=== PATIENT | male | born 1975 | race Caucasian/White ===

== ENCOUNTER 2017-12-22 12:26 | Emergency (ER) | payer OTHER ==
[2017-12-22 12:49] LABS: #Basophils 0.1 thou/uL (0.0-0.2); #Eosinphils 0.1 thou/uL (0.0-0.7); #Lymphocytes 1.7 thou/uL (1.20-3.40); #Monocytes 0.7 thou/uL (0.11-0.59); #Neutrophils 8.5 thou/uL (1.40-6.50); %Basophils 0.5 % (0.0-1.0); %Eosinophils 0.6 % (0.0-10.0); %Lymphocytes 15.6 % (21.0-51.0); %Monocytes 6.3 % (0.0-10.0); Hemoglobin 17.1 g/dL (14.0-18.0); Mean Corpuscular HGB CONC 34.5 g/dL (32.0-36.0); Mean Corpuscular Hemoglobin 32.5 pg (27.0-31.0); Mean Corpuscular Volume 94.1 fl (80.0-94.0); Mean Platelet Volume 7.1 fL (7.4-10.4); Platelet Count 292 thou/uL (130-400); RBC Distribution Width 12.5 % (11.5-14.5); Red Blood Cell (RBC) Count 5.27 mill/uL (4.70-6.10); White Blood Cell (WBC) Count 11.1 thou/uL (4.8-10.8)
[2017-12-22] MEDS ORDERED: Ondansetron ODT 4 MG TAB ONE (12:53)
[2017-12-22 13:17] LABS: ALT (SGPT) 42 U/L (8-55); AST (SGOT) 22 U/L (5-34); Albumin 4.7 g/dL (3.5-5.0); Alkaline Phosphatase 89 U/L (40-150); Anion Gap 13 mmol/L (10-20); BUN (Urea Nitrogen) 13 mg/dL (8.9-20.6); Bilirubin, Total 0.6 mg/dL (0.2-1.2); Calc. Creatinine Clearance 0 mL/min (70-130); Calcium 9.5 mg/dL (7.8-10.44); Carbon Dioxide 25 mmol/L (22-29); Chloride 103 mmol/L (98-107); Estimated GFR-MDRD 78; Globulin 2.6 g/dL (2.4-3.5); Glucose 140 mg/dL (70-105); Protein, Total 7.3 g/dL (6.0-8.3); Sodium 137 mmol/L (136-145)
[2017-12-22 13:58] LABS: Bilirubin Negative (Negative); Blood, Urine Negative (Negative); Clarity CLEAR (Clear); Glucose, Urine (Dipstick) 500 mg/dL (Negative); Leukocyte Negative (Negative); Nitrite Negative (Negative); Protein, Urine (Dipstick) Negative (Neg-Trace); Specific Gravity, Urine 1.031 (1.002-1.036); Urobilinogen 0.2 mg/dL (0.2-1.0); pH, Urine 6.5 (5.0-9.0)
--- NOTE | 2018-01-17 23:25 | EKG ---
Test Reason : Blood Pressure : / mmHG Vent. Rate : 086 BPM Atrial Rate : 086 BPM P-R Int : 160 ms QRS Dur : 086 ms QT Int : 378 ms P-R-T Axes : 044 041 016 degrees QTc Int : 452 ms Sinus rhythm with Premature atrial complexes with Abberant conduction Possible Left atrial enlargement Borderline ECG Confirmed by CARLITO CHEN, ARON Agudelo ([id number]), photo editor DEMETRICE MONTERROSO ([id number]) on 01/17/2018 11:24:58 PM Referred By: Confirmed By:ARON ESTEBAN MD
== END 2017-12-22 13:54 | disposition home or self-care (01) ==
LOC: ERS 12:26
DX: E86.0 Dehydration (principal); F32.9 Major depressive disorder, single episode, unspecified; F17.290 Nicotine dependence, other tobacco product, uncomplicated; Z71.6 Tobacco abuse counseling; Z79.899 Other long term (current) drug therapy; Z79.891 Long term (current) use of opiate analgesic
CPT/HCPCS: 36416; 80053; 81003; 82550; 85025; 93005; 96360; 99406; Q0162

== ENCOUNTER 2020-07-22 16:23 | Inpatient (IN) | payer OTHER ==
[~2020-07-22 16:23] MED LIST: Iopamidol-370 76% 500 ML 1 ML ONE
[2020-07-22] MEDS ORDERED: Morphine 4 MG/ML VIAL ONE ×2 (16:50→19:41)
[2020-07-22] MEDS ORDERED: Dexamethasone 10 MG/ML VIAL ONE (16:51)
[2020-07-22] MEDS ORDERED: Ketorolac Tromethamine 30 MG/ML VIAL ONE (16:51)
[2020-07-22] MEDS ORDERED: Ondansetron PF 4 MG/2 ML Vial ONE (16:51)
[2020-07-22 17:05] LABS: #Lymphocytes 0.5 thou/uL (1.20-3.40); #Monocytes 0.3 thou/uL (0.11-0.59); %Basophils 0.3 % (0.0-1.0); %Eosinophils 0.4 % (0.0-10.0); %Monocytes 6.1 % (0.0-10.0); %Neutrophils 82.2 % (42.0-75.0); Hemoglobin 18.4 g/dL (14.0-18.0); Mean Corpuscular HGB CONC 33.8 g/dL (32.0-36.0); Mean Corpuscular Hemoglobin 32.1 pg (27.0-31.0); Mean Platelet Volume 8.2 fL (7.4-10.4); Platelet Count 135 thou/uL (130-400); RBC Distribution Width 12.2 % (11.5-14.5); Red Blood Cell (RBC) Count 5.71 mill/uL (4.70-6.10); White Blood Cell (WBC) Count 4.9 thou/uL (4.8-10.8)
--- NOTE | 2020-07-22 17:17 | RAD ---
PORTABLE CHEST: 07/22/20 PROVIDED CLINICAL HISTORY: Shortness of breath, COVID positive. FINDINGS: The cardiac silhouette appears enlarged. This may be at least partially on the basis of portable tech nique. Patchy bilateral air space disease is present, predominating in the left mid and lower lung zo ne. There is no pleural fluid or pneumothorax apparent. IMPRESSION: Radiographic findings typical but not specific for COVID pneumonia. POS: CLARA
[2020-07-22 17:37] LABS: ALT (SGPT) 36 U/L (8-55); AST (SGOT) 34 U/L (5-34); Albumin 3.8 g/dL (3.5-5.0); Alkaline Phosphatase 67 U/L (40-110); Anion Gap 18 mmol/L (10-20); BUN (Urea Nitrogen) 13 mg/dL (8.9-20.6); Bilirubin, Total 0.3 mg/dL (0.2-1.2); Calc. Creatinine Clearance 0 mL/min (70-130); Calcium 8.9 mg/dL (7.8-10.44); Carbon Dioxide 22 mmol/L (22-29); Chloride 102 mmol/L (98-107); Globulin 2.9 g/dL (2.4-3.5); Glucose 173 mg/dL (70-105); Potassium 3.8 mmol/L (3.5-5.1); Protein, Total 6.7 g/dL (6.0-8.3); Sodium 138 mmol/L (136-145)
--- NOTE | 2020-07-22 19:00 | CT ---
CT PULMONARY ANGIOGRAM WITH IV CONTRAST AND 3D MIP RECONSTRUCTIONS: 07/22/20 PROVIDED CLINICAL HISTORY: Hypoxia, COVID positive. FINDINGS: There is no evidence for central or segmental pulmonary embolus. Extensive bilateral patchy consolidation. No pleural fluid or pneumothorax apparent. The airway appea rs patent and of normal caliber. There is no evidence for thoracic lymph node enlargement. The visual ized portions of the upper abdomen demonstrate fatty infiltration of the liver. The osseous structure s demonstrate no concerning lytic or blastic lesions. IMPRESSION: 1. No evidence for central or segmental pulmonary embolus. 2. Pulmonary parenchymal findings typical but not specific for COVID pneumonia. POS: CLARA
[2020-07-22] MEDS ORDERED: Azithromycin 500 MG VIAL ONE (19:26)
[2020-07-22] MEDS ORDERED: cefTRIAXone\\ROCEPHIN 2 GM VIAL ONE (19:26)
[2020-07-22] MEDS ORDERED: Calcium Carbonate 500 MG ChewTAB PO PRN (19:48)
[2020-07-22] MEDS ORDERED: Acetaminophen 325 MG TAB PO PRN (19:48)
[2020-07-22] MEDS ORDERED: Acetaminophen 650 MG Suppository PR PRN (19:48)
--- NOTE | 2020-07-22 19:51 | PDOC.HHP ---
Hospitalist HPI - History of Present Illness dyspnea History of Present Illness: Case of an 44y/o male with pmhx of DM who was diagnosed with covid 19 about a week ago comes to hospital with worsening dyspnea. patient states he was on his usual state of health until a week ago when he started with fever, chills cough loss of smell. he states symptoms have been worsening and since yesterday he has been experiencing worsening dyspnea. he reports he has been taken his 02 sats at home and they have been in the mid 80s and he is getting dyspneic with minimal effort for which he decided to comes to hospital for evaluation. Hospitalist ROS - Review of Systems All other systems reviewed; all pertinent +/- noted in HPI/Subj Hospitalist History - Past Surgical History Past Surgical History: reports: Tonsillectomy - Family History Family History: reports: diabetes mellitus - Social History Smoking Status: Never smoker Alcohol: reports: Occassional Drugs: reports: none Living Situation: With Family - Exam General Appearance: awake alert, ill appearing Eye: PERRL, anicteric sclera ENT: normocephalic atraumatic, no oropharyngeal lesions Neck: supple, symmetric, no JVD, no thyromegaly Heart: RRR, no murmur, no gallops, no rubs Respiratory: CTAB, no wheezes, no rales, no ronchi, normal chest expansion, tachypneic Gastrointestinal: soft, non-tender, non-distended, normal bowel sounds Extremities: no cyanosis, no clubbing, no edema Skin: normal turgor, no lesions, no rashes Neurological: cranial nerve grossly intact, normal sensation to touch, no weakness Musculoskeletal: normal tone, normal strength, no muscle wasting Psychiatric: normal affect, normal behavior, A&O x 3 Hospitalist Results - Labs Result Diagrams: 07/22/20 16:52 07/22/20 16:52 Lab results: WBC 4.9 thou/uL (4.8-10.8) 07/22/20 16:52 Hgb 18.4 g/dL (14.0-18.0) H 07/22/20 16:52 Hct 54.3 % (42.0-52.0) H 07/22/20 16:52 MCV 95.0 fL (78.0-98.0) 07/22/20 16:52 Plt Count 135 thou/uL (130-400) 07/22/20 16:52 Neutrophils % 82.2 % (42.0-75.0) H 07/22/20 16:52 Sodium 138 mmol/L (136-145) 07/22/20 16:52 Potassium 3.8 mmol/L (3.5-5.1) 07/22/20 16:52 Chloride 102 mmol/L (98-107) 07/22/20 16:52 Carbon Dioxide 22 mmol/L (22-29) 07/22/20 16:52 BUN 13 mg/dL (8.9-20.6) 07/22/20 16:52 Creatinine 1.05 mg/dL (0.7-1.3) 07/22/20 16:52 Glucose 173 mg/dL (70-105) H 07/22/20 16:52 Lactic Acid 2.6 mmol/L (0.5-2.2) H 07/22/20 16:52 Calcium 8.9 mg/dL (7.8-10.44) 07/22/20 16:52 Total Bilirubin 0.3 mg/dL (0.2-1.2) 07/22/20 16:52 AST 34 U/L (5-34) 07/22/20 16:52 ALT 36 U/L (8-55) 07/22/20 16:52 Alkaline Phosphatase 67 U/L (40-110) 07/22/20 16:52 Serum Total Protein 6.7 g/dL (6.0-8.3) 07/22/20 16:52 Albumin 3.8 g/dL (3.5-5.0) 07/22/20 16:52 Hospitalist H&P A/P - Problem (1) Pneumonia due to COVID-19 virus Code(s): U07.1 - COVID-19; J12.89 - OTHER VIRAL PNEUMONIA Status: Acute (2) Acute respiratory failure with hypoxia Code(s): J96.01 - ACUTE RESPIRATORY FAILURE WITH HYPOXIA Status: Acute (3) Diabetes Code(s): E11.9 - TYPE 2 DIABETES MELLITUS WITHOUT COMPLICATIONS Status: Acute (4) Sepsis Code(s): A41.9 - SEPSIS, UNSPECIFIED ORGANISM Status: Acute - Plan Plan: Case of an 44y/o male with the stated pmhx who present with covid 19 pneumonia and respirtory failure covid 19 pneumonia - tested positive 7 days ago - cxr and chest ct consistent with covid 19 - lymphoneia consistent with covid 19 dx - will start decadron 6mg ivd - dvt prophylaxis - isolation protocol sepsis - febrile + tachycardic + elevated LA with a cxr/chest ct consistent with covid 19 - cultures taken, iv fluids given - f/u lactic acid acute respiratory failure - secondary to covid 19 - cta negative for pe - 02 supplementation DM -acc+ss
[2020-07-22] MEDS ORDERED: Dextrose 5% in Water 1,000 ML IV PRN (20:03)
[2020-07-22] MEDS ORDERED: Dextrose 50% Abboject 50 ML SYRINGE SLOW IVP PRN (20:03)
[2020-07-22 21:15] LABS: Lactic Acid 0.9 mmol/L (0.5-2.2)
[2020-07-22] MEDS ORDERED: Ondansetron PF 4 MG/2 ML Vial IVP PRN (23:45)
[2020-07-22] MEDS ORDERED: Ondansetron ODT 4 MG TAB SL PRN (23:45)
[2020-07-23] MEDS: Sodium Chloride 0.9% 1,000 ML IV SCH ×2 (00:20→12:00)
[2020-07-23] MEDS: Guaifenesin DM 100-10/5 ML UDCUP PO PRN ×4 (00:30→21:09)
[2020-07-23] MEDS: HYDROcodone/Acetaminophen 5/325 mg Tablet PO PRN ×3 (00:35→21:12)
[2020-07-23 02:06] VITALS: BMI 41.0
[2020-07-23] MEDS ORDERED: Ketorolac Tromethamine 30 MG/ML VIAL IVP SCH (05:15)
[2020-07-23] MEDS: HumaLOG 300 UNITS/3 ML VIAL SC PRN ×2 (05:40→14:41)
[2020-07-23] MEDS: Dexamethasone 4 mg/ml Vial SLOW IVP SCH (08:59)
[2020-07-23] MEDS ORDERED: Enoxaparin Sodium 40 MG/0.4 ML SYRINGE SC SCH (09:00)
[2020-07-23 10:08] LABS: White Blood Cell (WBC) Count 5.6 thou/uL (4.8-10.8)
[2020-07-23 10:21] LABS: ALT (SGPT) 30 U/L (8-55); AST (SGOT) 28 U/L (5-34); Albumin 3.4 g/dL (3.5-5.0); Alkaline Phosphatase 61 U/L (40-110); Anion Gap 16 mmol/L (10-20); BUN (Urea Nitrogen) 14 mg/dL (8.9-20.6); Bilirubin, Total 0.3 mg/dL (0.2-1.2); Calc. Creatinine Clearance 198 mL/min (70-130); Calcium 8.1 mg/dL (7.8-10.44); Carbon Dioxide 21 mmol/L (22-29); Chloride 106 mmol/L (98-107); Globulin 2.9 g/dL (2.4-3.5); Glucose 137 mg/dL (70-105); Potassium 4.5 mmol/L (3.5-5.1); Protein, Total 6.3 g/dL (6.0-8.3); Sodium 138 mmol/L (136-145)
[2020-07-23 10:27] LABS: Band 2 % (5-11); Hemoglobin 17.1 g/dL (14.0-18.0); Lymphocytes 8 % (21-51); MDiff Complete? YES; Mean Corpuscular HGB CONC 33.2 g/dL (32.0-36.0); Mean Corpuscular Hemoglobin 32.1 pg (27.0-31.0); Mean Corpuscular Volume 96.5 fL (78.0-98.0); Mean Platelet Volume 8.2 fL (7.4-10.4); Monocytes 7 % (0-10); Neutrophil 83 % (42-75); Platelet Count 148 thou/uL (130-400); Platelet Morphology Comment Appears Adequate; RBC Distribution Width 12.3 % (11.5-14.5); Red Blood Cell (RBC) Count 5.33 mill/uL (4.70-6.10)
[2020-07-23] MEDS ORDERED: REMDESIVIR (EUA) 200 MG in Sodium Chloride 0.9% 250 ML 210 ML IV SCH (14:00)
--- NOTE | 2020-07-23 15:23 | PDOC.HOSPP ---
- Subjective Encounter Date: 07/23/20 Encounter Time: 13:00 Subjective: Patient up in bed on 2 L. - Objective Vital Signs & Weight: Vital Signs (12 hours) Temp Pulse Resp BP Pulse Ox 07/23/20 05:30 98.6 F 83 20 145/99 H 98 Weight Weight 254 lb 4.8 oz I&O: 07/22/20 07/23/20 07/24/20 06:59 06:59 06:59 Intake Total 1100 Output Total 400 Balance 700 Result Diagrams: 07/23/20 09:20 07/23/20 09:20 Additional Labs: Accuchecks 07/23/20 05:37 POC Glucose 185 H Hospitalist ROS - Review of Systems Respiratory: reports: shortness of breath Cardiovascular: denies: chest pain, palpitations, orthopnea, paroxysmal noc. dyspnea, edema, light headedness, other Gastrointestinal: denies: nausea, vomiting, abdominal pain, diarrhea, constipation, melena, hematochezia, other Genitourinary: denies: dysuria, frequency, incontinence, hematuria, retention, other - Medication Medications: Active Medications Generic Name Dose Route Start Last Admin Trade Name Freq PRN Reason Stop Dose Admin Hydrocodone Bitart/Acetaminophen 1 tab 07/22/20 19:48 07/23/20 00:35 Hydrocodone/Acetaminophen 5/325 Mg Tablet PO 1 tab Q4H PRN Administration Moderate Pain (4-6) Hydrocodone Bitart/Acetaminophen 2 tab 07/22/20 19:48 07/23/20 12:26 Hydrocodone/Acetaminophen 5/325 Mg Tablet PO 2 tab Q4H PRN Administration Severe Pain (7-10) Dexamethasone 6 mg 07/23/20 09:00 07/23/20 08:59 Dexamethasone 4 Mg/Ml Vial SLOW IVP 6 mg DAILY THAI Administration Guaifenesin/Dextromethorphan 15 ml 07/22/20 19:48 07/23/20 12:27 Guaifenesin Dm 100-10/5 Ml Udcup PO 15 ml Q4H PRN Administration Cough Remdesivir 200 mg/ Sodium 250 mls @ 250 mls/hr 07/23/20 14:00 07/23/20 14:40 Chloride IV 07/23/20 16:00 250 mls NOW THAI Administration Insulin Human Lispro 0 units 07/22/20 20:03 07/23/20 14:41 Humalog 300 Units/3 Ml Vial SC 2 unit .MILD SLIDING SCALE PRN Administration Mild Correctional Scale Sodium Chloride 10 ml 07/22/20 20:00 07/23/20 08:58 Flush - Normal Saline 10 Ml Syringe IVF 10 ml PRN PRN Administration Saline Flush - Exam Neck: negative: supple, symmetric, no JVD, no thyromegaly, no lymphadenopathy, no carotid bruit, JVD Heart: negative: RRR, no murmur, no gallops, no rubs, normal peripheral pulses, irregular, diminshed peripheral pulses, murmur present, II/IV, III/IV Respiratory: rales Gastrointestinal: negative: soft, non-tender, non-distended, normal bowel sounds, no palpable masses, no hepatomegaly, no splenomegaly, no bruit, no guarding, no rigidity, tender to palpation, distended, diminished bowl sounds, voluntary guarding Hosp A/P (1) Acute respiratory failure with hypoxia Code(s): J96.01 - ACUTE RESPIRATORY FAILURE WITH HYPOXIA Status: Acute (2) Diabetes Code(s): E11.9 - TYPE 2 DIABETES MELLITUS WITHOUT COMPLICATIONS Status: Acute (3) Pneumonia due to COVID-19 virus Code(s): U07.1 - COVID-19; J12.89 - OTHER VIRAL PNEUMONIA Status: Acute (4) Sepsis Code(s): A41.9 - SEPSIS, UNSPECIFIED ORGANISM Status: Acute - Plan Patient currently on 2 L nasal cannula. Desats when he coughs. No need for antibiotics currently. We will continue Decadron and will start remdesivir. Infectious disease consulted. We will also do inhaled steroids and as needed albuterol. Cough medications as needed. Accu-Cheks before meals at bedtime. We will continue to monitor patient.
[2020-07-23] MEDS ORDERED: Albuterol Sulfate 2.5 mg/3 ml Neb NEB PRN (15:24)
--- NOTE | 2020-07-23 16:52 | CON ---
DATE OF CONSULTATION: 07/23/2020 REASON FOR CONSULTATION: COVID pneumonia. 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 Because of exacerbation, hypoxemia, particularly on effort, he was admitted. Initial findings; blood pressure 130/86, pulse 103, with a temperature 101.7, O2 saturation 100. He was diaphoretic, alert, in some mild distress. Lung exam showed few crackles mid lung. Heart exam normal. Other findings on admission; white cell count 4.9, hemoglobin 18, platelets 135, 82% neutrophils, D-dimer 1.10, and CRP was 11.02. Right now, he is feeling a bit more comfortable. No headaches. No sore throat. No back pain. No anosmia. No abdominal pain. Voiding without difficulty. No joint symptoms. No neurological symptoms. PAST MEDICAL HISTORY: Otherwise, negative. No past medical or surgical intervention recorded except for right knee arthroscopy, had tonsillectomy, and polyps removed. 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 Drinks when not working, drinks daily. Never smoker. ALLERGIES: TRAMADOL. MEDICATIONS: 1. Tessalon. 2. Decadron. 3. Lovenox. 4. [place]. 5. Mometasone. 6. Remdesivir. FAMILY HISTORY: Noncontributory. PHYSICAL EXAMINATION: VITAL SIGNS: He is afebrile. He is saturating at 100% with nasal cannula at 2 L. GENERAL: Feels pretty comfortable unless he has to walk. SKIN: Normal. Peripheral IV access. No Herrera catheter. No lymphadenopathy. HEENT: Unremarkable. LUNGS: Fairly clear breath sounds. HEART: S1 and S2, regular rate. No S3, S4, or murmurs. ABDOMEN: Soft. Not distended or tender. No ascites. No bladder distention. MUSCULOSKELETAL: No joint inflammatory activity. Moves all extremities equally. NEUROLOGIC: Cognitive function appears to be intact. LABORATORY DATA: Sodium 138, creatinine 0.76. Liver profile normal. Albumin 3.4. CRP was 11. Chest CTA, [id number] ground-glass opacities, particularly on the left side. ASSESSMENT: [id number] COVID pneumonia, is doing well at 2 L. Continue remdesivir, Decadron, and Lovenox. Daily markers monitoring. Job ID: [id number]
[2020-07-23] MEDS: Ketorolac Tromethamine 30 MG/ML VIAL IVP PRN (17:07)
[2020-07-23] MEDS: Benzonatate 100 MG CAP PO PRN (17:08)
[2020-07-23] MEDS ORDERED: Albuterol 200 PUFF (6.7GM INHALER) INH PRN (20:50)
[2020-07-23] MEDS: Enoxaparin Sodium 40 MG/0.4 ML SYRINGE SC SCH (21:09)
[2020-07-23] MEDS: Mometasone 200 MCG/Formoterol 5 MCG 120 PUFF INHALER INH SCH (21:10)
[2020-07-23] MEDS ORDERED: Melatonin 3 MG TAB PO SCH ×2 (22:45)
--- NOTE | 2020-07-23 23:41 | PDOC.EVN ---
Event Note - Event Note Event Note: Nursing called. Patient running fever, NSAIds ineffective, patient adamant about restarting IVFs to help manage fever, says it is only thing that seems to work, he believes he is "dry". Started IVF maintenance rate x 1 bag.
[2020-07-23] MEDS ORDERED: Sodium Chloride 0.9% 1,000 ML IV SCH (23:45)
[2020-07-24] MEDS: Ketorolac Tromethamine 30 MG/ML VIAL IVP PRN ×3 (00:01→17:31)
[2020-07-24] MEDS: Mometasone 200 MCG/Formoterol 5 MCG 120 PUFF INHALER INH SCH ×2 (06:27→18:39)
[2020-07-24] MEDS: Guaifenesin DM 100-10/5 ML UDCUP PO PRN ×2 (06:45→14:55)
[2020-07-24] MEDS: HYDROcodone/Acetaminophen 5/325 mg Tablet PO PRN ×2 (06:45→22:07)
[2020-07-24] MEDS: Dexamethasone 4 mg/ml Vial SLOW IVP SCH (09:08)
[2020-07-24] MEDS: Famotidine 20 MG TAB PO SCH ×2 (09:09→22:02)
[2020-07-24] MEDS ORDERED: Promethazine HCl 12.5 MG in Sodium Chloride 0.9% 50 ML IVPB SCH (10:15)
[2020-07-24] MEDS: Ondansetron PF 4 MG/2 ML Vial IVP PRN (10:36)
[2020-07-24] MEDS: Enoxaparin Sodium 40 MG/0.4 ML SYRINGE SC SCH ×2 (10:37→22:03)
[2020-07-24 11:43] LABS: INR-International Normal Ratio 0.9; Prothrombin Time 12.8 sec (12.0-14.7)
[2020-07-24] MEDS ORDERED: Ibuprofen 600 MG TAB PO PRN (11:54)
[2020-07-24] MEDS: HumaLOG 300 UNITS/3 ML VIAL SC PRN ×2 (11:54→17:36)
[2020-07-24 12:03] LABS: ALT (SGPT) 25 U/L (8-55); AST (SGOT) 34 U/L (5-34); Albumin 3.1 g/dL (3.5-5.0); Alkaline Phosphatase 48 U/L (40-110); Anion Gap 16 mmol/L (10-20); BUN (Urea Nitrogen) 17 mg/dL (8.9-20.6); Bilirubin, Total 0.3 mg/dL (0.2-1.2); Calc. Creatinine Clearance 160 mL/min (70-130); Carbon Dioxide 23 mmol/L (22-29); Chloride 101 mmol/L (98-107); Globulin 2.8 g/dL (2.4-3.5); Glucose 213 mg/dL (70-105); Potassium 4.2 mmol/L (3.5-5.1); Protein, Total 5.9 g/dL (6.0-8.3); Sodium 136 mmol/L (136-145)
--- NOTE | 2020-07-24 14:36 | PDOC.HOSPP ---
- Subjective Encounter Date: 07/24/20 Encounter Time: 11:00 Subjective: Patient up in bed complains of cough. Patient states that he had a bad night. Patient stated that he had a fever and could not sleep. - Objective Vital Signs & Weight: Vital Signs (12 hours) Temp Pulse Resp BP Pulse Ox 07/24/20 10:53 98.5 F 92 18 136/92 H 97 07/24/20 09:36 98 07/24/20 09:35 98.4 F 98 20 123/81 98 07/24/20 04:53 99.8 F H 102 H 20 120/76 93 L Weight Weight 254 lb 4.8 oz I&O: 07/23/20 07/24/20 07/25/20 06:59 06:59 06:59 Intake Total 1100 1780 Output Total 400 1200 Balance 700 580 Result Diagrams: 07/23/20 09:20 07/24/20 11:00 Additional Labs: Accuchecks 07/24/20 07/24/20 07/23/20 11:53 04:18 21:16 POC Glucose 211 H 113 H 144 H 07/23/20 07/23/20 17:18 12:32 POC Glucose 133 H 194 H Hospitalist ROS - Review of Systems Respiratory: reports: cough, shortness of breath Cardiovascular: denies: chest pain, palpitations, orthopnea, paroxysmal noc. dyspnea, edema, light headedness, other Gastrointestinal: reports: abdominal pain Genitourinary: denies: dysuria, frequency, incontinence, hematuria, retention, other - Medication Medications: Active Medications Generic Name Dose Route Start Last Admin Trade Name Freq PRN Reason Stop Dose Admin Acetaminophen 650 mg 07/22/20 19:48 07/23/20 22:51 Acetaminophen 325 Mg Tab PO 650 mg Q4H PRN Administration Headache/Fever/Mild Pain (1-3) Hydrocodone Bitart/Acetaminophen 1 tab 07/22/20 19:48 07/23/20 00:35 Hydrocodone/Acetaminophen 5/325 Mg Tablet PO 1 tab Q4H PRN Administration Moderate Pain (4-6) Hydrocodone Bitart/Acetaminophen 2 tab 07/22/20 19:48 07/24/20 06:45 Hydrocodone/Acetaminophen 5/325 Mg Tablet PO 2 tab Q4H PRN Administration Severe Pain (7-10) Albuterol Sulfate 2 puff 07/23/20 20:50 07/23/20 21:11 Albuterol 200 Puff (6.7gm Inhaler) INH 2 puff [id number] PRN Administration Wheezing Benzonatate 100 mg 07/23/20 12:59 07/23/20 17:08 Benzonatate 100 Mg Cap PO 100 mg TIDPRN PRN Administration Cough Dexamethasone 6 mg 07/23/20 09:00 07/24/20 09:08 Dexamethasone 4 Mg/Ml Vial SLOW IVP 6 mg DAILY THAI Administration Enoxaparin Sodium 40 mg 07/23/20 21:00 07/24/20 10:37 Enoxaparin Sodium 40 Mg/0.4 Ml Syringe SC 40 mg BID THAI Administration Famotidine 20 mg 07/24/20 09:00 07/24/20 09:09 Famotidine 20 Mg Tab PO 20 mg BID THAI Administration Guaifenesin/Dextromethorphan 15 ml 07/22/20 19:48 07/24/20 06:45 Guaifenesin Dm 100-10/5 Ml Udcup PO 15 ml Q4H PRN Administration Cough Insulin Human Lispro 0 units 07/22/20 20:03 07/24/20 11:54 Humalog 300 Units/3 Ml Vial SC 3 unit .MILD SLIDING SCALE PRN Administration Mild Correctional Scale Mometasone Furoate/Formoterol Fumar 2 puff 07/23/20 18:30 07/24/20 06:27 Mometasone 200 Mcg/Formoterol 5 Mcg 120 Puff Inhaler INH 2 puff BID-RT THAI Administration Ondansetron HCl 4 mg 07/24/20 09:57 07/24/20 10:36 Ondansetron Pf 4 Mg/2 Ml Vial IVP 4 mg Q6H PRN Administration Nausea/Vomiting Sodium Chloride 10 ml 07/22/20 20:00 07/23/20 08:58 Flush - Normal Saline 10 Ml Syringe IVF 10 ml PRN PRN Administration Saline Flush - Exam Heart: negative: RRR, no murmur, no gallops, no rubs, normal peripheral pulses, irregular, diminshed peripheral pulses, murmur present, II/IV, III/IV Respiratory: negative: CTAB, no wheezes, no rales, no ronchi, normal chest expansion, no tachypnea, normal percussion, rales, rhonchi, tachypneic, wheezes Gastrointestinal: negative: soft, non-tender, non-distended, normal bowel sounds, no palpable masses, no hepatomegaly, no splenomegaly, no bruit, no guarding, no rigidity, tender to palpation, distended, diminished bowl sounds, voluntary guarding Extremities: negative: no cyanosis, no clubbing, no edema, 1+ LE edema, 2+ LE edema, clubbing Hosp A/P (1) Acute respiratory failure with hypoxia Code(s): J96.01 - ACUTE RESPIRATORY FAILURE WITH HYPOXIA Status: Acute (2) Diabetes Code(s): E11.9 - TYPE 2 DIABETES MELLITUS WITHOUT COMPLICATIONS Status: Acute (3) Pneumonia due to COVID-19 virus Code(s): U07.1 - COVID-19; J12.89 - OTHER VIRAL PNEUMONIA Status: Acute (4) Sepsis Code(s): A41.9 - SEPSIS, UNSPECIFIED ORGANISM Status: Acute - Plan Patient currently on 2 L nasal cannula. Desats when he coughs. No need for antibiotics currently. We will continue Decadron and will start remdesivir. Infectious disease consulted. We will also do inhaled steroids and as needed albuterol. Cough medications as needed. Accu-Cheks before meals at bedtime. We will continue to monitor patient. 07/24 patient is on day 2 of remdesivir he is nauseated we will do as needed Zofran and Phenergan. Not much of an appetite patient has been encouraged to drink Ensure if needed. Encouraged him to get up and sit up in the chair. Patient continues to cough has blood-tinged sputum. CRP mildly improved today. Patient currently is on 2 L nasal cannula. We will add Robitussin with codeine for night so patient can sleep. Continue steroids.
[2020-07-24] MEDS: REMDESIVIR (EUA) 100 MG in Sodium Chloride 0.9% 250 ML 230 ML IV SCH (14:56)
[2020-07-24] MEDS: Melatonin 3 MG TAB PO SCH (22:03)
[2020-07-24] MEDS: guaiFENesin/Codeine Phosphate 200 mg/20 mg 10 ml UD Cup PO PRN (22:06)
[2020-07-25] MEDS: Ketorolac Tromethamine 30 MG/ML VIAL IVP PRN ×3 (02:08→17:28)
[2020-07-25] MEDS: Ondansetron PF 4 MG/2 ML Vial IVP PRN ×2 (02:36→17:29)
[2020-07-25] MEDS: Guaifenesin DM 100-10/5 ML UDCUP PO PRN ×2 (02:37→09:03)
[2020-07-25] MEDS: HYDROcodone/Acetaminophen 5/325 mg Tablet PO PRN ×2 (02:48→21:02)
[2020-07-25] MEDS: Mometasone 200 MCG/Formoterol 5 MCG 120 PUFF INHALER INH SCH ×2 (05:33→17:30)
[2020-07-25 06:54] LABS: ALT (SGPT) 24 U/L (8-55); AST (SGOT) 33 U/L (5-34); Alkaline Phosphatase 44 U/L (40-110); Anion Gap 14 mmol/L (10-20); BUN (Urea Nitrogen) 15 mg/dL (8.9-20.6); Bilirubin, Direct 0.2 mg/dL (0.1-0.3); Bilirubin, Total 0.3 mg/dL (0.2-1.2); CRP (Inflammatory) 11.86 mg/dL (= or < 0.5); Calc. Creatinine Clearance 201 mL/min (70-130); Calcium 8.1 mg/dL (7.8-10.44); Carbon Dioxide 28 mmol/L (22-29); Chloride 102 mmol/L (98-107); Glucose 131 mg/dL (70-105); Protein, Total 5.6 g/dL (6.0-8.3); Sodium 140 mmol/L (136-145)
[2020-07-25] MEDS: Dexamethasone 4 mg/ml Vial SLOW IVP SCH (09:01)
[2020-07-25] MEDS: Famotidine 20 MG TAB PO SCH ×2 (09:09→20:40)
[2020-07-25] MEDS ORDERED: Polyethylene Glycol 3350 17 GM Packet PO SCH (12:00)
[2020-07-25] MEDS: Enoxaparin Sodium 40 MG/0.4 ML SYRINGE SC SCH ×2 (12:49→20:39)
[2020-07-25] MEDS: HumaLOG 300 UNITS/3 ML VIAL SC PRN ×2 (12:49→17:29)
--- NOTE | 2020-07-25 13:25 | PDOC.HOSPP ---
- Subjective Encounter Date: 07/25/20 Encounter Time: 11:15 Subjective: Patient up in bed states that he feels much better today compared to yesterday. - Objective Vital Signs & Weight: Vital Signs (12 hours) Temp Pulse Resp BP Pulse Ox 07/25/20 12:37 98.4 F 95 20 151/99 H 95 07/25/20 08:12 98.6 F 80 28 H 145/95 H 97 Weight Weight 254 lb 4.8 oz I&O: 07/24/20 07/25/20 07/26/20 06:59 06:59 06:59 Intake Total 1780 2000 Output Total 1200 600 Balance 580 1400 Result Diagrams: 07/23/20 09:20 07/25/20 06:12 Additional Labs: Accuchecks 07/25/20 07/24/20 07/24/20 06:02 22:10 17:33 POC Glucose 132 H 150 H 180 H Hospitalist ROS - Review of Systems Respiratory: reports: cough, shortness of breath Cardiovascular: denies: chest pain, palpitations, orthopnea, paroxysmal noc. dyspnea, edema, light headedness, other Gastrointestinal: reports: abdominal pain - Medication Medications: Active Medications Generic Name Dose Route Start Last Admin Trade Name Freq PRN Reason Stop Dose Admin Acetaminophen 650 mg 07/22/20 19:48 07/23/20 22:51 Acetaminophen 325 Mg Tab PO 650 mg Q4H PRN Administration Headache/Fever/Mild Pain (1-3) Hydrocodone Bitart/Acetaminophen 1 tab 07/22/20 19:48 07/25/20 02:48 Hydrocodone/Acetaminophen 5/325 Mg Tablet PO 1 tab Q4H PRN Administration Moderate Pain (4-6) Hydrocodone Bitart/Acetaminophen 2 tab 07/22/20 19:48 07/24/20 06:45 Hydrocodone/Acetaminophen 5/325 Mg Tablet PO 2 tab Q4H PRN Administration Severe Pain (7-10) Albuterol Sulfate 2 puff 07/23/20 20:50 07/23/20 21:11 Albuterol 200 Puff (6.7gm Inhaler) INH 2 puff [id number] PRN Administration Wheezing Benzonatate 100 mg 07/23/20 12:59 07/23/20 17:08 Benzonatate 100 Mg Cap PO 100 mg TIDPRN PRN Administration Cough Dexamethasone 6 mg 07/23/20 09:00 07/25/20 09:01 Dexamethasone 4 Mg/Ml Vial SLOW IVP 6 mg DAILY THAI Administration Enoxaparin Sodium 40 mg 07/23/20 21:00 07/25/20 12:49 Enoxaparin Sodium 40 Mg/0.4 Ml Syringe SC 40 mg BID THAI Administration Famotidine 20 mg 07/24/20 09:00 07/25/20 09:09 Famotidine 20 Mg Tab PO 20 mg BID THAI Administration Guaifenesin/Codeine Phosphate 10 ml 07/24/20 11:48 07/24/20 22:06 Guaifenesin/Codeine Phosphate 200 Mg/20 Mg 10 Ml Ud Cup PO 10 ml HS PRN Administration Cough Guaifenesin/Dextromethorphan 15 ml 07/22/20 19:48 07/25/20 09:03 Guaifenesin Dm 100-10/5 Ml Udcup PO 15 ml Q4H PRN Administration Cough Remdesivir 100 mg/ Sodium 250 mls @ 250 mls/hr 07/24/20 14:00 07/24/20 14:56 Chloride IV 07/27/20 14:59 250 mls Q24H THAI Administration Insulin Human Lispro 0 units 07/22/20 20:03 07/25/20 12:49 Humalog 300 Units/3 Ml Vial SC 3 unit .MILD SLIDING SCALE PRN Administration Mild Correctional Scale Ketorolac Tromethamine 30 mg 07/24/20 11:50 07/25/20 09:09 Ketorolac Tromethamine 30 Mg/Ml Vial IVP 30 mg Q6H PRN Administration Pain Melatonin 3 mg 07/24/20 21:00 07/24/20 22:03 Melatonin 3 Mg Tab PO 3 mg HS THAI Administration Mometasone Furoate/Formoterol Fumar 2 puff 07/23/20 18:30 07/25/20 05:33 Mometasone 200 Mcg/Formoterol 5 Mcg 120 Puff Inhaler INH 2 puff BID-RT THAI Administration Ondansetron HCl 4 mg 07/24/20 09:57 07/25/20 02:36 Ondansetron Pf 4 Mg/2 Ml Vial IVP 4 mg Q6H PRN Administration Nausea/Vomiting Polyethylene Glycol 17 gm 07/25/20 12:00 07/25/20 12:49 Polyethylene Glycol 3350 17 Gm Packet PO 07/25/20 14:00 17 gm NOW THAI Administration Sodium Chloride 10 ml 07/22/20 20:00 07/23/20 08:58 Flush - Normal Saline 10 Ml Syringe IVF 10 ml PRN PRN Administration Saline Flush - Exam Neck: negative: supple, symmetric, no JVD, no thyromegaly, no lymphadenopathy, no carotid bruit, JVD Heart: negative: RRR, no murmur, no gallops, no rubs, normal peripheral pulses, irregular, diminshed peripheral pulses, murmur present, II/IV, III/IV Respiratory: negative: CTAB, no wheezes, no rales, no ronchi, normal chest expansion, no tachypnea, normal percussion, rales, rhonchi, tachypneic, wheezes Gastrointestinal: negative: soft, non-tender, non-distended, normal bowel sounds, no palpable masses, no hepatomegaly, no splenomegaly, no bruit, no guarding, no rigidity, tender to palpation, distended, diminished bowl sounds, voluntary guarding Hosp A/P (1) Acute respiratory failure with hypoxia Code(s): J96.01 - ACUTE RESPIRATORY FAILURE WITH HYPOXIA Status: Acute (2) Diabetes Code(s): E11.9 - TYPE 2 DIABETES MELLITUS WITHOUT COMPLICATIONS Status: Acute (3) Pneumonia due to COVID-19 virus Code(s): U07.1 - COVID-19; J12.89 - OTHER VIRAL PNEUMONIA Status: Acute (4) Sepsis Code(s): A41.9 - SEPSIS, UNSPECIFIED ORGANISM Status: Acute - Plan Patient currently on 2 L nasal cannula. Desats when he coughs. No need for antibiotics currently. We will continue Decadron and will start remdesivir. Infectious disease consulted. We will also do inhaled steroids and as needed albuterol. Cough medications as needed. Accu-Cheks before meals at bedtime. We will continue to monitor patient. 07/24 patient is on day 2 of remdesivir he is nauseated we will do as needed Zofran and Phenergan. Not much of an appetite patient has been encouraged to drink Ensure if needed. Encouraged him to get up and sit up in the chair. Patient continues to cough has blood-tinged sputum. CRP mildly improved today. Patient currently is on 2 L nasal cannula. We will add Robitussin with codeine for night so patient can sleep. Continue steroids. 07/25 we will continue remdesivir day 3. Patient states that he slept well last night uneventful night last night. Encouraged to get up and move around. Mildly elevated CRP we will continue to monitor. We will continue Decadron for now. Patient on DVT prophylaxis.
[2020-07-25] MEDS: REMDESIVIR (EUA) 100 MG in Sodium Chloride 0.9% 250 ML 230 ML IV SCH (14:38)
[2020-07-25] MEDS: Melatonin 3 MG TAB PO SCH (20:39)
[2020-07-25] MEDS: guaiFENesin/Codeine Phosphate 200 mg/20 mg 10 ml UD Cup PO PRN (21:40)
[2020-07-26] MEDS: Ketorolac Tromethamine 30 MG/ML VIAL IVP PRN ×2 (01:10→12:23)
[2020-07-26] MEDS: Guaifenesin DM 100-10/5 ML UDCUP PO PRN ×3 (01:10→15:01)
[2020-07-26] MEDS: HYDROcodone/Acetaminophen 5/325 mg Tablet PO PRN ×3 (01:10→20:54)
[2020-07-26] MEDS: Ondansetron PF 4 MG/2 ML Vial IVP PRN ×2 (01:11→08:53)
[2020-07-26] MEDS: Mometasone 200 MCG/Formoterol 5 MCG 120 PUFF INHALER INH SCH ×2 (05:30→17:38)
[2020-07-26 06:30] LABS: ALT (SGPT) 26 U/L (8-55); AST (SGOT) 40 U/L (5-34); Albumin 3.1 g/dL (3.5-5.0); Alkaline Phosphatase 49 U/L (40-110); Anion Gap 13 mmol/L (10-20); BUN (Urea Nitrogen) 17 mg/dL (8.9-20.6); Bilirubin, Direct 0.3 mg/dL (0.1-0.3); Bilirubin, Total 0.4 mg/dL (0.2-1.2); CRP (Inflammatory) 8.26 mg/dL (= or < 0.5); Calc. Creatinine Clearance 196 mL/min (70-130); Calcium 8.4 mg/dL (7.8-10.44); Carbon Dioxide 27 mmol/L (22-29); Chloride 101 mmol/L (98-107); Glucose 120 mg/dL (70-105); Protein, Total 5.8 g/dL (6.0-8.3); Sodium 137 mmol/L (136-145)
[2020-07-26] MEDS: Famotidine 20 MG TAB PO SCH ×2 (08:51→20:54)
[2020-07-26] MEDS: Dexamethasone 4 mg/ml Vial SLOW IVP SCH (08:51)
[2020-07-26] MEDS: Polyethylene Glycol 3350 17 GM Packet PO SCH (08:52)
[2020-07-26] MEDS: Enoxaparin Sodium 40 MG/0.4 ML SYRINGE SC SCH ×2 (08:52→20:54)
[2020-07-26] MEDS ORDERED: guaiFENesin ER 600 MG TAB PO SCH (10:30)
--- NOTE | 2020-07-26 14:33 | PDOC.HOSPP ---
- Subjective Encounter Date: 07/26/20 Encounter Time: 11:15 Subjective: pt up in bed feels better today - Objective Vital Signs & Weight: Vital Signs (12 hours) Temp Pulse Resp BP Pulse Ox 07/26/20 12:00 99.0 F 96 16 136/84 96 07/26/20 08:00 94 L 07/26/20 07:39 98.5 F 70 16 142/93 H 94 L 07/26/20 04:00 97.9 F 88 20 151/98 H 93 L 07/26/20 03:13 97 Weight Weight 254 lb 4.8 oz I&O: 07/25/20 07/26/20 07/27/20 06:59 06:59 06:59 Intake Total 2000 1900 Output Total 600 1400 Balance 1400 500 Result Diagrams: 07/23/20 09:20 07/26/20 05:50 Additional Labs: Accuchecks 07/26/20 07/26/20 07/25/20 12:15 05:43 20:45 POC Glucose 155 H 107 H 145 H 07/25/20 07/25/20 15:19 11:37 POC Glucose 204 H 224 H Hospitalist ROS - Review of Systems Respiratory: denies: cough, dry, shortness of breath, hemoptysis, SOB with excertion, pleuritic pain, sputum, wheezing, other Cardiovascular: denies: chest pain, palpitations, orthopnea, paroxysmal noc. dyspnea, edema, light headedness, other Gastrointestinal: denies: nausea, vomiting, abdominal pain, diarrhea, constipation, melena, hematochezia, other Genitourinary: denies: dysuria, frequency, incontinence, hematuria, retention, other - Medication Medications: Active Medications Generic Name Dose Route Start Last Admin Trade Name Freq PRN Reason Stop Dose Admin Acetaminophen 650 mg 07/22/20 19:48 07/23/20 22:51 Acetaminophen 325 Mg Tab PO 650 mg Q4H PRN Administration Headache/Fever/Mild Pain (1-3) Hydrocodone Bitart/Acetaminophen 1 tab 07/22/20 19:48 07/26/20 05:35 Hydrocodone/Acetaminophen 5/325 Mg Tablet PO 1 tab Q4H PRN Administration Moderate Pain (4-6) Hydrocodone Bitart/Acetaminophen 2 tab 07/22/20 19:48 07/24/20 06:45 Hydrocodone/Acetaminophen 5/325 Mg Tablet PO 2 tab Q4H PRN Administration Severe Pain (7-10) Albuterol Sulfate 2 puff 07/23/20 20:50 07/23/20 21:11 Albuterol 200 Puff (6.7gm Inhaler) INH 2 puff [id number] PRN Administration Wheezing Benzonatate 100 mg 07/23/20 12:59 07/23/20 17:08 Benzonatate 100 Mg Cap PO 100 mg TIDPRN PRN Administration Cough Dexamethasone 6 mg 07/23/20 09:00 07/26/20 08:51 Dexamethasone 4 Mg/Ml Vial SLOW IVP 6 mg DAILY THAI Administration Enoxaparin Sodium 40 mg 07/23/20 21:00 07/26/20 08:52 Enoxaparin Sodium 40 Mg/0.4 Ml Syringe SC 40 mg BID THAI Administration Famotidine 20 mg 07/24/20 09:00 07/26/20 08:51 Famotidine 20 Mg Tab PO 20 mg BID THAI Administration Guaifenesin/Codeine Phosphate 10 ml 07/24/20 11:48 07/25/20 21:40 Guaifenesin/Codeine Phosphate 200 Mg/20 Mg 10 Ml Ud Cup PO 10 ml HS PRN Administration Cough Guaifenesin/Dextromethorphan 15 ml 07/22/20 19:48 07/26/20 05:34 Guaifenesin Dm 100-10/5 Ml Udcup PO 15 ml Q4H PRN Administration Cough Remdesivir 100 mg/ Sodium 250 mls @ 250 mls/hr 07/24/20 14:00 07/25/20 14:38 Chloride IV 07/27/20 14:59 250 mls Q24H THAI Administration Insulin Human Lispro 0 units 07/22/20 20:03 07/25/20 17:29 Humalog 300 Units/3 Ml Vial SC 3 unit .MILD SLIDING SCALE PRN Administration Mild Correctional Scale Ketorolac Tromethamine 30 mg 07/26/20 10:21 07/26/20 12:23 Ketorolac Tromethamine 30 Mg/Ml Vial IVP 30 mg Q6H PRN Administration Pain Melatonin 3 mg 07/24/20 21:00 07/25/20 20:39 Melatonin 3 Mg Tab PO 3 mg HS THAI Administration Mometasone Furoate/Formoterol Fumar 2 puff 07/23/20 18:30 07/26/20 05:30 Mometasone 200 Mcg/Formoterol 5 Mcg 120 Puff Inhaler INH 2 puff BID-RT THAI Administration Ondansetron HCl 4 mg 07/24/20 09:57 07/26/20 08:53 Ondansetron Pf 4 Mg/2 Ml Vial IVP 4 mg Q6H PRN Administration Nausea/Vomiting Polyethylene Glycol 17 gm 07/26/20 09:00 07/26/20 08:52 Polyethylene Glycol 3350 17 Gm Packet PO 17 gm DAILY THAI Administration Sodium Chloride 10 ml 07/22/20 20:00 07/23/20 08:58 Flush - Normal Saline 10 Ml Syringe IVF 10 ml PRN PRN Administration Saline Flush - Exam Neck: negative: supple, symmetric, no JVD, no thyromegaly, no lymphadenopathy, no carotid bruit, JVD Heart: negative: RRR, no murmur, no gallops, no rubs, normal peripheral pulses, irregular, diminshed peripheral pulses, murmur present, II/IV, III/IV Respiratory: negative: CTAB, no wheezes, no rales, no ronchi, normal chest expansion, no tachypnea, normal percussion, rales, rhonchi, tachypneic, wheezes Gastrointestinal: negative: soft, non-tender, non-distended, normal bowel sounds, no palpable masses, no hepatomegaly, no splenomegaly, no bruit, no guarding, no rigidity, tender to palpation, distended, diminished bowl sounds, voluntary guarding Hosp A/P (1) Acute respiratory failure with hypoxia Code(s): J96.01 - ACUTE RESPIRATORY FAILURE WITH HYPOXIA Status: Acute (2) Diabetes Code(s): E11.9 - TYPE 2 DIABETES MELLITUS WITHOUT COMPLICATIONS Status: Acute (3) Pneumonia due to COVID-19 virus Code(s): U07.1 - COVID-19; J12.89 - OTHER VIRAL PNEUMONIA Status: Acute (4) Sepsis Code(s): A41.9 - SEPSIS, UNSPECIFIED ORGANISM Status: Acute - Plan Patient currently on 2 L nasal cannula. Desats when he coughs. No need for antibiotics currently. We will continue Decadron and will start remdesivir. Infectious disease consulted. We will also do inhaled steroids and as needed albuterol. Cough medications as needed. Accu-Cheks before meals at bedtime. We will continue to monitor patient. 07/24 patient is on day 2 of remdesivir he is nauseated we will do as needed Zofran and Phenergan. Not much of an appetite patient has been encouraged to drink Ensure if needed. Encouraged him to get up and sit up in the chair. Patient continues to cough has blood-tinged sputum. CRP mildly improved today. Patient currently is on 2 L nasal cannula. We will add Robitussin with codeine for night so patient can sleep. Continue steroids. 07/25 we will continue remdesivir day 3. Patient states that he slept well last night uneventful night last night. Encouraged to get up and move around. Mildly elevated CRP we will continue to monitor. We will continue Decadron for now. Patient on DVT prophylaxis. 07/26 patient up in bed today remdesivir day 4. Patient continues to improve. Possible home on Friday. We will continue DVT prophylaxis. We will add Mucinex today. called and updated.
[2020-07-26] MEDS: REMDESIVIR (EUA) 100 MG in Sodium Chloride 0.9% 250 ML 230 ML IV SCH (15:01)
[2020-07-26] MEDS: Melatonin 3 MG TAB PO SCH (20:54)
[2020-07-26] MEDS: guaiFENesin ER 600 MG TAB PO SCH (20:54)
[2020-07-26] MEDS: guaiFENesin/Codeine Phosphate 200 mg/20 mg 10 ml UD Cup PO PRN (20:55)
[2020-07-27] MEDS: Ketorolac Tromethamine 30 MG/ML VIAL IVP PRN (02:12)
[2020-07-27] MEDS: Guaifenesin DM 100-10/5 ML UDCUP PO PRN ×2 (03:01→06:29)
[2020-07-27 05:43] LABS: #Monocytes 0.5 thou/uL (0.11-0.59); #Neutrophils 3.8 thou/uL (1.40-6.50); %Basophils 0.1 % (0.0-1.0); %Eosinophils 0.7 % (0.0-10.0); %Monocytes 9.7 % (0.0-10.0); %Neutrophils 71.5 % (42.0-75.0); Hemoglobin 16.2 g/dL (14.0-18.0); Mean Corpuscular HGB CONC 33.1 g/dL (32.0-36.0); Mean Corpuscular Hemoglobin 32.6 pg (27.0-31.0); Mean Corpuscular Volume 98.3 fL (78.0-98.0); Mean Platelet Volume 7.9 fL (7.4-10.4); Platelet Count 248 thou/uL (130-400); RBC Distribution Width 12.3 % (11.5-14.5); Red Blood Cell (RBC) Count 4.99 mill/uL (4.70-6.10); White Blood Cell (WBC) Count 5.3 thou/uL (4.8-10.8)
[2020-07-27 06:07] LABS: ALT (SGPT) 37 U/L (8-55); AST (SGOT) 46 U/L (5-34); Albumin 3.1 g/dL (3.5-5.0); Alkaline Phosphatase 45 U/L (40-110); Anion Gap 12 mmol/L (10-20); BUN (Urea Nitrogen) 21 mg/dL (8.9-20.6); Bilirubin, Direct 0.2 mg/dL (0.1-0.3); Bilirubin, Total 0.5 mg/dL (0.2-1.2); CRP (Inflammatory) 4.04 mg/dL (= or < 0.5); Calc. Creatinine Clearance 179 mL/min (70-130); Calcium 8.4 mg/dL (7.8-10.44); Carbon Dioxide 30 mmol/L (22-29); Chloride 102 mmol/L (98-107); Globulin 2.6 g/dL (2.4-3.5); Glucose 129 mg/dL (70-105); Potassium 4.7 mmol/L (3.5-5.1); Protein, Total 5.7 g/dL (6.0-8.3); Sodium 139 mmol/L (136-145)
[2020-07-27] MEDS: HYDROcodone/Acetaminophen 5/325 mg Tablet PO PRN ×3 (06:29→20:13)
[2020-07-27] MEDS: Mometasone 200 MCG/Formoterol 5 MCG 120 PUFF INHALER INH SCH ×2 (06:30→20:45)
[2020-07-27] MEDS: Dexamethasone 4 mg/ml Vial SLOW IVP SCH (08:42)
[2020-07-27] MEDS: Enoxaparin Sodium 40 MG/0.4 ML SYRINGE SC SCH ×2 (08:44→20:11)
[2020-07-27] MEDS: guaiFENesin ER 600 MG TAB PO SCH ×2 (08:44→20:11)
[2020-07-27] MEDS: Polyethylene Glycol 3350 17 GM Packet PO SCH (08:44)
[2020-07-27] MEDS: Famotidine 20 MG TAB PO SCH ×2 (08:44→20:11)
[2020-07-27] MEDS: Ondansetron PF 4 MG/2 ML Vial IVP PRN (09:03)
[2020-07-27] MEDS: HumaLOG 300 UNITS/3 ML VIAL SC PRN (12:54)
[2020-07-27] MEDS: REMDESIVIR (EUA) 100 MG in Sodium Chloride 0.9% 250 ML 230 ML IV SCH (14:41)
[2020-07-27] MEDS: Benzonatate 100 MG CAP PO PRN (14:42)
[2020-07-27] MEDS: guaiFENesin/Codeine Phosphate 200 mg/20 mg 10 ml UD Cup PO PRN (20:11)
[2020-07-27] MEDS: Melatonin 3 MG TAB PO SCH (20:11)
[2020-07-28] MEDS: HYDROcodone/Acetaminophen 5/325 mg Tablet PO PRN (01:14)
[2020-07-28] MEDS: Guaifenesin DM 100-10/5 ML UDCUP PO PRN (01:14)
[2020-07-28 05:47] LABS: #Eosinphils 0.1 thou/uL (0.0-0.7); #Lymphocytes 1.7 thou/uL (1.20-3.40); #Monocytes 0.7 thou/uL (0.11-0.59); #Neutrophils 5.6 thou/uL (1.40-6.50); %Basophils 0.5 % (0.0-1.0); %Eosinophils 1.1 % (0.0-10.0); %Lymphocytes 20.8 % (21.0-51.0); %Monocytes 8.9 % (0.0-10.0); %Neutrophils 68.7 % (42.0-75.0); Hemoglobin 16.5 g/dL (14.0-18.0); Mean Corpuscular HGB CONC 33.1 g/dL (32.0-36.0); Mean Corpuscular Hemoglobin 31.9 pg (27.0-31.0); Mean Corpuscular Volume 96.5 fL (78.0-98.0); Mean Platelet Volume 7.7 fL (7.4-10.4); Platelet Count 307 thou/uL (130-400); RBC Distribution Width 12.4 % (11.5-14.5); Red Blood Cell (RBC) Count 5.16 mill/uL (4.70-6.10); White Blood Cell (WBC) Count 8.1 thou/uL (4.8-10.8)
[2020-07-28 05:53] LABS: Hemoglobin A1c 6.7 % (4.0-6.0)
[2020-07-28 06:08] LABS: ALT (SGPT) 43 U/L (8-55); AST (SGOT) 45 U/L (5-34); Alkaline Phosphatase 50 U/L (40-110); Anion Gap 12 mmol/L (10-20); BUN (Urea Nitrogen) 20 mg/dL (8.9-20.6); Bilirubin, Direct 0.2 mg/dL (0.1-0.3); Bilirubin, Total 0.5 mg/dL (0.2-1.2); CRP (Inflammatory) 1.82 mg/dL (= or < 0.5); Calc. Creatinine Clearance 186 mL/min (70-130); Calcium 8.3 mg/dL (7.8-10.44); Carbon Dioxide 28 mmol/L (22-29); Chloride 102 mmol/L (98-107); Glucose 103 mg/dL (70-105); Potassium 4.7 mmol/L (3.5-5.1); Protein, Total 5.9 g/dL (6.0-8.3); Sodium 137 mmol/L (136-145)
[2020-07-28] MEDS: Mometasone 200 MCG/Formoterol 5 MCG 120 PUFF INHALER INH SCH (06:54)
[2020-07-28] MEDS: Dexamethasone 4 mg/ml Vial SLOW IVP SCH (08:18)
[2020-07-28] MEDS: Enoxaparin Sodium 40 MG/0.4 ML SYRINGE SC SCH (08:20)
[2020-07-28] MEDS: guaiFENesin ER 600 MG TAB PO SCH (08:20)
[2020-07-28] MEDS: Famotidine 20 MG TAB PO SCH (08:20)
[2020-07-28] MEDS: Polyethylene Glycol 3350 17 GM Packet PO SCH (08:20)
[2020-07-28] MEDS: Ondansetron PF 4 MG/2 ML Vial IVP PRN (08:41)
[2020-07-28 13:54] VITALS: BP 133/72; TEMP 98.7
--- NOTE | 2020-07-28 18:02 | PDOC.DS.DS ---
Provider - Provider Date of Admission: 07/22/20 19:37 Date of Discharge: 07/28/20 Admitting Provider: Zion García Consultations: Infectious Disease Primary Care Physician: Ian Little DO Course - Hospital Course Hospital Course: Patient is a 44-year-old male who initially presented to the hospital with complaints of shortness of breath and hypoxia. Patient underwent a CTA which did not indicate any acute pulmonary embolism however had patchy parenchymal typical of Covid pneumonia. This time he was started on remdesivir and steroi ds. Continues to improve through the hospital stay. He was seen by infectious disease. His inflammatory markers continue to trend downwards. He was discharged home on 2 L of nasal cannula. Patient has been encouraged to take his Metformin at home. Follow-up with his primary care doctor. Resuscitation Status: 07/22/20 19:48 Resuscitation Status Routine Resuscitation Status: FULL: Full Resuscitation - Labs Lab Results: 07/28/20 05:15 07/28/20 05:15 Abnormal Lab Results - Last 48 hrs 07/27/20 05:30: Carbon Dioxide 30 H, BUN 21 H, AST 46 H, C-Reactive Protein 4.04 H, Serum Total Protein 5.7 L, Albumin 3.1 L 07/27/20 05:30: Ferritin 550.71 H 07/27/20 05:30: D-Dimer 1.28 H 07/27/20 05:30: MCV 98.3 H, MCH 32.6 H, Lymphocytes % 18.0 L, Lymphocytes # 1.0 L 07/28/20 05:15: C-Reactive Protein 1.85 H 07/28/20 05:15: AST 45 H, C-Reactive Protein 1.82 H, Serum Total Protein 5.9 L, Albumin 3.0 L 07/28/20 05:15: Ferritin 581.88 H 07/28/20 05:15: D-Dimer 1.30 H 07/28/20 05:15: Hemoglobin A1c 6.7 H 07/28/20 05:15: MCH 31.9 H, Lymphocytes % 20.8 L, Monocytes # 0.7 H - Physical Exam Vitals: Vital Signs (12 hours) Temp Pulse Resp BP Pulse Ox 07/28/20 08:00 98.7 F 92 18 133/72 91 L Weight Weight 254 lb 4.8 oz Physical Exam: The patient was seen and examined on the day of discharge. Problem - Problem (1) Acute respiratory failure with hypoxia Code(s): J96.01 - ACUTE RESPIRATORY FAILURE WITH HYPOXIA Status: Acute (2) Diabetes Code(s): E11.9 - TYPE 2 DIABETES MELLITUS WITHOUT COMPLICATIONS Status: Acute (3) Pneumonia due to COVID-19 virus Code(s): U07.1 - COVID-19; J12.89 - OTHER VIRAL PNEUMONIA Status: Acute (4) Sepsis Code(s): A41.9 - SEPSIS, UNSPECIFIED ORGANISM Status: Acute Plan - Discharge Medications Prescriptions: Aspirin 325 mg PO DAILY #14 tab Dexamethasone [Decadron] 6 mg PO DAILY #4 tablet Albuterol Sulfate [Proventil Hfa] 2 puff INH [id number] PRN #1 aer PRN Reason: Wheezing Home Medications: Medication Instructions Recorded Confirmed Type ALButerol Sulfate [Ventolin Neb] 07/23/20 History guaiFENesin ER [Mucinex] 1 tab PO 07/23/20 History Albuterol Sulfate [Proventil Hfa] 2 puff INH [id number] PRN #1 aer 07/27/20 Rx Aspirin 325 mg PO DAILY #14 tab 07/28/20 Rx Dexamethasone [Decadron] 6 mg PO DAILY #4 tablet 07/28/20 Rx Allergies: tramadol [From Ultram] Allergy (Verified 07/23/20 02:21) TELECTIN Allergy (Uncoded 07/23/20 02:21) - Discharge Instructions Activity:: Activity as Tolerated Nourishment:: Heart Healthy Diet - Follow up Plan Referrals: Dl Quintana MD [Active] - Ian Little DO [Primary Care Provider] - Disposition: HOME Quality - Care Measures CORE MEASURES:: N/A
== END 2020-07-28 15:50 | disposition home or self-care (01) | DRG 871 ==
LOC: ERS 16:23 → T4-A 19:37
PROVIDERS: ADMIT Internal Medicine; ATTEND Internal Medicine
PROC: 8E0ZXY6 Isolation (ICD-10-PCS; principal; 2020-07-22)
PROC: XW033E5 Introduction of Remdesivir Anti-infective into Peripheral Vein, Percutaneous Approach, New Technology Group 5 (ICD-10-PCS; 2020-07-23)
DX: A41.89 Other specified sepsis (principal); U07.1 COVID-19; J12.89 Other viral pneumonia; J96.01 Acute respiratory failure with hypoxia; E11.9 Type 2 diabetes mellitus without complications; F32.9 Major depressive disorder, single episode, unspecified; Z90.89 Acquired absence of other organs; Z98.890 Other specified postprocedural states; Z88.5 Allergy status to narcotic agent; Z83.3 Family history of diabetes mellitus
CPT/HCPCS: 36415; 36416; 71045; 71275; 80048; 80053; 80076; 82306; 82728; 83036; 83605; 84145; 85007; 85025; 85027; 85379; 85610; 86140; 94760; 96365; 96366; 96368; 96375; 96376; J0456; J0696; J1100; J1650; J1885; J2270; J2405; J2550; J7050; Q9967

== ENCOUNTER 2023-05-09 07:56 | Outpatient (CLI) | payer BC ==
[2023-05-09] MEDS ORDERED: Magnevist 469MG/ML 20 ML VIAL ONE (15:46)
== END 2023-05-09 07:57 | disposition home or self-care (01) ==
LOC: BICMRI 07:56
PROVIDERS: ATTEND Psychiatry & Neurology Neurology
DX: R56.9 Unspecified convulsions (principal)
CPT/HCPCS: 70553; A9579

== ENCOUNTER 2023-05-09 12:51 | Outpatient (CLI) | payer BC | END 2023-05-09 12:52 | disposition home or self-care (01) | LOC: EEG 12:51 | PROVIDERS: ATTEND Psychiatry & Neurology Neurology | DX: R56.9 Unspecified convulsions (principal) | CPT/HCPCS: 95816; 95957 ==

== ENCOUNTER 2023-07-23 07:55 | Outpatient (CLI) | payer BC | END 2023-07-23 07:56 | disposition home or self-care (01) | LOC: BICULT 07:55 | PROVIDERS: ATTEND Psychiatry & Neurology Neurology | DX: R89.9 Unspecified abnormal finding in specimens from other organs, systems and tissues (principal); R93.2 Abnormal findings on diagnostic imaging of liver and biliary tract | CPT/HCPCS: 76705 ==